=== PATIENT | male | born 1970 | race African-American/Black ===

== ENCOUNTER 2024-09-02 21:46 | Inpatient (IN) | payer OTHER ==
[~2024-09-02 21:46] MED LIST: Iopamidol-370 76% 500 ML MDV (1 ML CHARGE) ONE
[2024-09-02] MEDS ORDERED: Magnesium 2 GM/50 ML BAG (IN WATER) ONE (22:03)
[2024-09-02] MEDS ORDERED: cefTRIAXone (ROCEPHIN) 2 GM VIAL ONE (22:03)
[2024-09-02] MEDS ORDERED: Sodium Chloride 0.9% 100 ML ONE (22:06)
[2024-09-02 22:07] LABS: Actual Bicarbonate (HCO3v) 24.2 mEq/L (22-28); Analyzer IN Cardio ER; Base Excess -5.3 mEq/L (-2.0 to +3.0); Calcium, Ionized (venous) 1.12 mmol/L (1.16-1.32); Chloride (VBG) 102 mmol/L (98-106); Hematocrit-VBG 49 % (42.0-52.0); Hemoglobin (Hb) 16.8 g/dL (13.1-17.2); Potassium (VBG) 3.54 mmol/L (3.70-5.30); Sodium 141 mmol/L (133-146)
[2024-09-02 22:14] LABS: #Basophils 0.11 10x3/uL (0.0-0.2); %Basophils 0.6 % (0.0-1.0); %Eosinophils 2.3 % (0.0-10.0); %Lymphocytes 10.9 % (21.0-51.0); %Monocytes 3.1 % (0.0-10.0); %Neutrophils 82.5 % (42.0-75.0); Hematocrit 47.9 % (42.0-52.0); Hemoglobin 15.8 g/dL (14.0-18.0); Mean Corpuscular Hemoglobin 29.8 pg (27.0-31.0); Mean Corpuscular Volume 90.2 fL (78.0-98.0); Platelet Count 301 10x3/uL (130-400); RBC Distribution Width 13.2 % (11.5-14.5); Red Blood Cell (RBC) Count 5.31 mill/uL (4.70-6.10)
[2024-09-02] MEDS ORDERED: Ipratropium/Albuterol 3 ML NEB ONE (22:17)
[2024-09-02 22:29] LABS: INR-International Normal Ratio 1.1; PTT 26.1 sec (22.9-36.1); Prothrombin Time 13.9 sec (12.0-14.7)
[2024-09-02 22:36] LABS: ALT (SGPT) 61 U/L (8-55); AST (SGOT) 53 U/L (5-34); Albumin 3.8 g/dL (3.5-5.0); Alkaline Phosphatase 83 U/L (40-110); Anion Gap 17 mmol/L (10-20); BUN (Urea Nitrogen) 8 mg/dL (8.4-25.7); Bilirubin, Total 0.4 mg/dL (0.2-1.2); CK (CPK) 581 U/L (30-200); Calc. Creatinine Clearance 0 mL/min (70-130); Carbon Dioxide 22 mmol/L (22-29); Chloride 106 mmol/L (98-107); Estimated GFR 97; Globulin 4.3 g/dL (2.4-3.5); Glucose 204 mg/dL (70-105); Lipase 11 U/L (8-78); Magnesium 2.3 mg/dL (1.6-2.6); Potassium 3.5 mmol/L (3.5-5.1); Protein, Total 8.1 g/dL (6.0-8.3); Sodium 141 mmol/L (136-145)
[2024-09-02 22:37] LABS: Troponin I 0.087 ng/mL (< 0.028)
[2024-09-02] MEDS ORDERED: Azithromycin 500 MG VIAL ONE (22:42)
[2024-09-03] MEDS ORDERED: Acetaminophen 650 MG Suppository PR PRN (02:32)
[2024-09-03] MEDS ORDERED: Ondansetron PF 4 MG/2 ML Vial IVP PRN (02:32)
[2024-09-03] MEDS ORDERED: Ondansetron ODT 4 MG TAB PO PRN (02:32)
[2024-09-03] MEDS ORDERED: Nitroglycerin 0.4 MG TAB (25 Tab Bottle) SL PRN (02:34)
[2024-09-03 02:38] LABS: pH (venous) 7.201 (7.32-7.43)
[2024-09-03 03:22] LABS: #Basophils 0.03 10x3/uL (0.0-0.2); #Eosinophils Less than 0.03 10x3/uL (0.0-0.7); %Basophils 0.2 % (0.0-1.0); %Eosinophils 0.1 % (0.0-10.0); %Monocytes 1.1 % (0.0-10.0); %Neutrophils 95.3 % (42.0-75.0); Hematocrit 42.1 % (42.0-52.0); Mean Corpuscular HGB CONC 33.3 g/dL (32.0-36.0); Mean Corpuscular Volume 90.3 fL (78.0-98.0); Mean Platelet Volume 9.1 fL (7.4-10.4); Platelet Count 236 10x3/uL (130-400); RBC Distribution Width 13.2 % (11.5-14.5); Red Blood Cell (RBC) Count 4.66 mill/uL (4.70-6.10)
[2024-09-03 03:57] LABS: Alcohol Less than 10.0 mg/dL (Less than 10)
[2024-09-03 04:00] LABS: Anion Gap 16 mmol/L (10-20); BUN (Urea Nitrogen) 8 mg/dL (8.4-25.7); Calc. Creatinine Clearance 0 mL/min (70-130); Carbon Dioxide 20 mmol/L (22-29); Cardiac Risk 4.2 (Less than 4.5); Chloride 109 mmol/L (98-107); Cholesterol 148 mg/dl (< 200 Desired); Estimated GFR 104; Glucose 127 mg/dL (70-105); HDL Cholesterol 35 mg/dL (>60 Neg Risk); LDL Cholesterol, Calculated 103 mg/dL; Potassium 4.5 mmol/L (3.5-5.1); Sodium 140 mmol/L (136-145); Triglycerides 51 mg/dL (Less than 150)
[2024-09-03 04:25] LABS: Troponin I 0.139 ng/mL (< 0.028)
[2024-09-03 05:25] VITALS: BMI 28.7
[2024-09-03] MEDS: Lactated Ringer's 500 ML IV SCH (05:44)
[2024-09-03] MEDS: Aspirin 325 mg Enteric Coated Tablet PO SCH (07:12)
[2024-09-03] MEDS ORDERED: Acetaminophen 325 MG TAB ONE ×2 (07:20→13:40)
[2024-09-03] MEDS: Acetaminophen 325 MG TAB PO SCH (07:27)
[2024-09-03] MEDS ORDERED: Ipratropium/Albuterol 3 ML NEB ONE ×3 (07:41→16:10)
[2024-09-03] MEDS: Ipratropium/Albuterol 3 ML NEB NEB SCH (07:42)
[2024-09-03] MEDS ORDERED: Doxycycline 100 MG CAP ONE (08:15)
[2024-09-03] MEDS ORDERED: methylPREDNISolone Sod Succ 40 MG VIAL ONE (08:16)
[2024-09-03] MEDS ORDERED: Aspirin Chewable 81 MG TAB ONE (08:16)
[2024-09-03] MEDS ORDERED: Famotidine 20 MG TAB ONE (08:16)
[2024-09-03] MEDS: Aspirin Chewable 81 MG TAB PO SCH (08:23)
[2024-09-03] MEDS: Doxycycline 100 MG CAP PO SCH (08:24)
[2024-09-03] MEDS: Famotidine 20 MG TAB PO SCH (08:24)
[2024-09-03] MEDS: Famotidine/PF 20 mg/2ml Vial SLOW IVP SCH (08:24)
[2024-09-03] MEDS: methylPREDNISolone Sod Succ 40 MG VIAL IVP SCH (08:24)
[2024-09-03] MEDS: Arformoterol 15 MCG/2 ML NEB NEB SCH ×2 (12:02→18:33)
[2024-09-03] MEDS ORDERED: Enoxaparin 40 MG (0.4 mL) SYRINGE ONE (13:40)
[2024-09-03] MEDS: Enoxaparin 40 MG (0.4 mL) SYRINGE SC SCH (13:42)
[2024-09-03] MEDS: Budesonide 0.25 MG/2 ML NEB INH SCH (18:28)
[2024-09-03] MEDS: cefTRIAXone\\ROCEPHIN 2 GM in Sodium Chloride 0.9% 100 ML IVPB SCH (21:02)
[2024-09-04] MEDS: Enoxaparin 40 MG (0.4 mL) SYRINGE SC SCH (08:17)
[2024-09-04] MEDS: FLU (Fluarix Triv) TS24-25(6MOS UP)/PF 45 MCG/0.5 ML Syringe IM ONE (08:23)
[2024-09-04 08:58] LABS: #Basophils Less than 0.03 10x3/uL (0.0-0.2); #Eosinophils Less than 0.03 10x3/uL (0.0-0.7); %Basophils 0.1 % (0.0-1.0); %Neutrophils 85.5 % (42.0-75.0); Hematocrit 40.3 % (42.0-52.0); Hemoglobin 13.7 g/dL (14.0-18.0); Mean Corpuscular Hemoglobin 30.1 pg (27.0-31.0); Mean Corpuscular Volume 88.6 fL (78.0-98.0); Mean Platelet Volume 9.3 fL (7.4-10.4); Platelet Count 256 10x3/uL (130-400); RBC Distribution Width 13.5 % (11.5-14.5); Red Blood Cell (RBC) Count 4.55 mill/uL (4.70-6.10)
[2024-09-04 09:11] LABS: Anion Gap 14 mmol/L (10-20); BUN (Urea Nitrogen) 12 mg/dL (8.4-25.7); Calc. Creatinine Clearance 130 mL/min (70-130); Carbon Dioxide 21 mmol/L (22-29); Chloride 109 mmol/L (98-107); Estimated GFR 102; Glucose 171 mg/dL (70-105); Sodium 140 mmol/L (136-145)
[2024-09-04] MEDS: Losartan 25 MG TAB PO SCH (17:06)
[2024-09-04] MEDS ORDERED: Ipratropium/Albuterol 3 ML NEB NEB SCH (18:30)
[2024-09-04] MEDS ORDERED: Electrolyte Replacement Protocol 1 EACH FS SCH (18:45)
[2024-09-04] MEDS: Ipratropium/Albuterol 3 ML NEB NEB PRN (18:49)
[2024-09-04] MEDS: Cefdinir 300 MG CAP PO SCH (19:54)
[2024-09-04] MEDS: Famotidine 20 MG TAB PO SCH (19:55)
[2024-09-04 20:26] LABS: Magnesium 2.4 mg/dL (1.6-2.6)
[2024-09-05 05:39] LABS: #Basophils Less than 0.03 10x3/uL (0.0-0.2); #Eosinophils Less than 0.03 10x3/uL (0.0-0.7); %Basophils 0.1 % (0.0-1.0); %Lymphocytes 8.7 % (21.0-51.0); %Monocytes 5.1 % (0.0-10.0); %Neutrophils 85.6 % (42.0-75.0); Hemoglobin 13.2 g/dL (14.0-18.0); Mean Corpuscular Hemoglobin 29.9 pg (27.0-31.0); Mean Corpuscular Volume 90.7 fL (78.0-98.0); Mean Platelet Volume 9.5 fL (7.4-10.4); Platelet Count 259 10x3/uL (130-400); RBC Distribution Width 13.6 % (11.5-14.5); Red Blood Cell (RBC) Count 4.41 mill/uL (4.70-6.10)
[2024-09-05 05:58] LABS: Chloride 109 mmol/L (98-107); Potassium 4.4 mmol/L (3.5-5.1); Sodium 143 mmol/L (136-145)
[2024-09-05 06:01] LABS: Anion Gap 13 mmol/L (10-20); BUN (Urea Nitrogen) 19 mg/dL (8.4-25.7); Calc. Creatinine Clearance 141 mL/min (70-130); Carbon Dioxide 24 mmol/L (22-29); Estimated GFR 105; Glucose 136 mg/dL (70-105); Magnesium 2.5 mg/dL (1.6-2.6)
[2024-09-05] MEDS: Carvedilol 6.25 MG TAB PO SCH (08:57)
[2024-09-05] MEDS: predniSONE 20 MG TAB PO SCH (08:57)
[2024-09-05] MEDS ORDERED: Losartan 25 MG TAB PO SCH (09:00)
[2024-09-05 12:31] VITALS: TEMP 97.8
[2024-09-05 13:28] VITALS: BP 178/93
[2024-09-05] MEDS: Losartan 25 MG TAB PO SCH (15:00)
== END 2024-09-05 15:05 | disposition home or self-care (01) | DRG 871 ==
LOC: ERS 21:46 → ERHOLD 09-03 01:05 → PCU 09-03 01:07
PROVIDERS: ADMIT Student in an Organized Health Care Education/Training Program; ATTEND Family Medicine
DX: A41.9 Sepsis, unspecified organism (principal); I21.A1 Myocardial infarction type 2; J96.01 Acute respiratory failure with hypoxia; I47.20 Ventricular tachycardia, unspecified; M62.82 Rhabdomyolysis; J44.1 Chronic obstructive pulmonary disease with (acute) exacerbation; F10.10 Alcohol abuse, uncomplicated; Z71.41 Alcohol abuse counseling and surveillance of alcoholic; I10 Essential (primary) hypertension; R73.9 Hyperglycemia, unspecified; J40 Bronchitis, not specified as acute or chronic
CPT/HCPCS: 36415; 70450; 71045; 71275; 80048; 80053; 80061; 80307; 82550; 82805; 83605; 83690; 83735; 83880; 84443; 84484; 85025; 85610; 85730; 87040; 87428; 90656; 93005; 93306; 94640; 94660; 96361; 96365; 96367; J0456; J0696; J1650; J2919; J3475; J3490; J7120; J7512; J7620; J7626; Q9967